=== PATIENT | male | born 1980 | race Caucasian/White ===

== ENCOUNTER 2017-12-29 14:46 | Emergency (ER) | payer BC ==
[~2017-12-29] VITALS: Ht 185.4 cm; Wt 147.0 kg
[2017-12-29 18:13] VITALS: BP 155/80
== END 2017-12-29 18:15 | disposition home or self-care (01) ==
LOC: ER 15:11
DX: R09.89 Other specified symptoms and signs involving the circulatory and respiratory systems (principal); I10 Essential (primary) hypertension
CPT/HCPCS: 70360; 71045; 99284